=== PATIENT | male | born 1970 | race African-American/Black ===

== ENCOUNTER → 2023-03-21 11:22 | Outpatient (CLI) | payer OTHER, SELFPAY ==
--- NOTE | ~2023-03-21 | MR_ITS ---
MRI of the left knee Clinical history: Pain Technique: Coronal proton density and proton density-weighted images, sagittal proton-density and T2 fat-sat images, and axial proton-density fat-saturated images were acquired. Findings: ACL is hyperintense and amorphous, consistent with complete ACL rupture. Posterior cruciate ligament is intact. There are mild contusions at the central aspect lateral femoral condyle and post erolateral tibial plateau, consistent with recent pivot shift injury. There is complete rupture of the proximal MCL. Lateral collateral ligament complex is intact with pro bable sprain of the fibular collateral ligament. Popliteus tendon is intact. There is complex tearing of the posterior horn and body of the lateral meniscus, with partial extrusi on of the body segment into the lateral gutter. No definite medial meniscus tear seen. No other bone marrow signal abnormality seen. Articular cartilage is well preserved throughout the kn ee. Extensor mechanism is intact. Small joint effusion present. Moderate Pabon's cyst present. Impression: Complete ruptures of the ACL and proximal MCL. Complex tearing of the posterior horn and body of the lateral meniscus. Mild transchondral impaction injuries at the central aspect lateral femoral condyle and posterolatera l tibial plateau. Small joint effusion with moderate Pabon's cyst. Probable sprain of the proximal fibular collateral ligament. Reviewed, dictated and finalized at location . Impression: Complete ruptures of the ACL and proximal MCL. Complex tearing of the posterior horn and body of the lateral meniscus. Mild transchondral impaction injuries at the central aspect lateral femoral con dyle and posterolateral tibial plateau. Small joint effusion with moderate Pabon's cyst. Probable sprain of the proximal fibular collateral ligament.
== END ==
PROVIDERS: PCP Orthopaedic Surgery; Visit Provider Orthopaedic Surgery
DX: S83.272A Complex tear of lateral meniscus, current injury, left knee, initial encounter (principal); S83.32XA Tear of articular cartilage of left knee, current, initial encounter; M71.22 Synovial cyst of popliteal space [Baker], left knee; S83.412A Sprain of medial collateral ligament of left knee, initial encounter; X58.XXXA Exposure to other specified factors, initial encounter
CPT/HCPCS: 73721